=== PATIENT | male | born 1950 | race Caucasian/White ===

== ENCOUNTER 2019-08-21 08:40 | Observation (INO) ==
[2019-08-21] MEDS ORDERED: NS 1,000 ML IV ONE (09:11)
[2019-08-21] MEDS ORDERED: FLEET ENEMA PR ONE (09:15)
[2019-08-21 09:21] LABS: URINE SOURCE CLEAN CATCH
[2019-08-21 09:27] LABS: BILIRUBIN URINE NEGATIVE (NEGATIVE); BLOOD URINE NEGATIVE (NEGATIVE); COLOR YELLOW; GLUCOSE URINE NEGATIVE (NEGATIVE); KETONE URINE TRACE mg/dL (NEGATIVE); LEUKOCYTES URINE SMALL (NEGATIVE); NITRITE URINE NEGATIVE (NEGATIVE); PROTEIN URINE TRACE mg/dL (NEGATIVE); SP GRAVITY URINE 1.024; TURBIDITY URINE CLEAR (CLEAR); UROBILINOGEN URINE NORMAL (NORMAL)
[2019-08-21 09:28] LABS: UR EPITHELIAL CELLS <10 /HPF (<10); URINE BACTERIA NEGATIVE /HPF; URINE RBC <10 /HPF (<10); URINE WBC <10 /HPF (<10)
[2019-08-21] MEDS ORDERED: ULTRAM PO ONE (09:39)
[2019-08-21 09:59] LABS: BASO# 0.05 X1000 (0.0-0.2); BASO% 0.6 % (0.0-0.8); EOS# 0.21 X1000 (0.0-0.7); EOS% 2.5 % (0.0-10.0); HEMATOCRIT 55.3 % (42.0-52.0); HEMOGLOBIN 18.6 g/dL (14.0-18.0); LYMPH# 1.84 X1000 (1.2-3.4); LYMPH% 22.1 % (20.5-51.1); MCH 28.6 PG (27-31); MCHC 33.6 g/dL (33-37); MCV 84.9 FL (81-99); MONO# 0.95 X1000 (0.11-0.59); MONO% 11.4 % (1.7-9.3); MPV 10.3 FL (7.4-10.4); NEUT# 5.26 X1000 (1.4-6.5); NEUT% 63.4 % (42.2-75.2); PLT 194 X1000 (130-400); RBC 6.51 XMIL (4.7-6.1); RDW 16.1 % (11.5-14.5); WBC 8.31 X1000 (4.8-10.8)
[2019-08-21 10:17] LABS: AGAP 10; ALB/GLOB RATIO 1.1; ALBUMIN 3.6 g/dL (3.5-5.0); ALKALINE PHOSPHATASE 64 U/L (32-122); BUN 12 mg/dL (8-22); CALCIUM 9.3 mg/dL (8.8-10.2); CHLORIDE 99 mmol/L (98-107); COSMO 275; CREATININE 1.1 mg/dL (0.7-1.2); ESTIMATED GFR > 60; GLUCOSE 116 mg/dL (70-104); GOT 35 U/L (10-34); GPT 39 U/L (10-44); POTASSIUM 3.7 mmol/L (3.5-5.1); SODIUM 137 mmol/L (136-145); TCO2 28 mmol/L (25-35); TOTAL BILIRUBIN 0.79 mg/dL (0.20-1.00); TOTAL PROTEIN 6.9 g/dL (6.3-8.3)
[2019-08-21] MEDS ORDERED: ROCEPHIN 1 GM in NS 50 ML IV ONE (11:21)
--- NOTE | 2019-08-21 11:47 | Diag Imaging Result Doc PS360 ---
EXAM: CT ABD/PELVIS W/PO AND IV CON INDICATION: abdo pain, constipation TECHNIQUE: This exam was performed using automated exposure control, adjustment of mA or kV according to patient size, and/or use of iterative reconstruction technique. COMPARISON: 08/20/2019 FINDINGS: There is minimal subsegmental atelectasis at the lung bases. The liver, gallbladder, spleen, pancreas, adrenal glands, kidneys, and urinary bladder are essentially unremarkable. The appendix is not identified. There is no secondary sign of appendicitis. There is mild to moderate uncomplicated sigmoid colonic diverticulosis. There is increased stool in the right colon which could be due to obstipation. There is no evidence of bowel wall thickening or bowel obstruction. The remainder of the GI tract is essentially unremarkable. No focal inflammatory changes, free abdominal gas, or free fluid is appreciated. There are stable bilateral inguinal hernias that contain only fat. There is no evidence of acute osseous abnormality. IMPRESSION: Somewhat increased stool in the right colon suggesting possible obstipation. Otherwise, stable CT with no evidence of acute pathology. Electronically signed by Brooks Hall 08/21/2019 11:44 AM
--- NOTE | 2019-08-21 12:39 | PROVIDER DOCUMENTATION ---
This chart was entered by Lorrie Cooper Scribe, acting as scribe for Devon Figueredo MD. HPI-Abdominal Pain/GI Problem - General Chief Complaint: Constipation Stated Complaint: RETURN/RECHECK Time Seen by Provider: 08/21/19 08:56 Source: patient Allergies/Adverse Reactions: Patient Allergies Allergy/AdvReac Type Severity Reaction Status Date / Time No Known Allergies Allergy Verified 08/20/19 10:47 Home Medications: Home Medication List Medication Instructions Recorded Confirmed Last Taken Type Alprazolam 1 tab PO PRN PRN 08/20/19 08/20/19 Unknown History Ciprofloxacin HCl [Cipro] 1 tab PO BID 08/20/19 08/20/19 08/20/19 History Dicyclomine [Bentyl] 20 mg PO BID #20 cap 08/20/19 Unknown Rx Lansoprazole 1 cap PO DAILY 08/20/19 08/20/19 08/20/19 History Losartan/Hydrochlorothiazide 1 tab PO DAILY 08/20/19 08/20/19 08/20/19 History [Hyzaar 100-25 Tablet] Montelukast Sodium 1 tab PO DAILY 08/20/19 08/20/19 08/20/19 History Polyethylene Glycol 3350 [Miralax] 1 dose PO PRN PRN 08/20/19 08/20/19 08/19/19 History Tramadol HCl 1 tab PO QHS 08/20/19 08/20/19 08/19/19 History Tramadol HCl 2 tab PO QAM 08/20/19 08/20/19 08/20/19 History - History of Present Illness-ABD Nature of Presenting Problems: 68yom presents to ED cc LLQ pain and left flank pain, frequency and hesitancy for 2 weeks, along with constipation and no BM for 1 week. Pt reports he was seen in ED yesterday, dx with diverticulosis;constipation and given Relistor, told to follow up with PCP. He is on Ultram and [place] that was prescribed by PCP for abdominal pain. He has taken no constipation relief meds at home before coming into ED. He denies F/C/Cough/N/V/D/SOB. Abdominal Pain Onset Location: reports: LLQ Pain Radiation: reports: flank (left) Quality of Pain: reports: sharp Severity in ED: reports: mild Onset/Duration: reports: other (2 weeks) Timing: reports: still present, changing over time Activities at Onset: reports: light activity Exposure to sick contacts?: No Modifying Factors: improves with: nothing Associated Symptoms: reports: constipation, genitourinary problems Last BM: 1 week ago Similar Symptoms Previously?: Yes Recently seen or treated by another doctor?: Yes (seen in ED yesterday) Review of Systems - Adult - REVIEW OF SYSTEMS - ADULT Constitutional: reports: see HPI. denies: chills, fever, fatique Eyes: reports: no symptoms reported Ears, Nose, Mouth & Throat: reports: no symptoms reported Cardiovascular: reports: no symptoms reported Respiratory: reports: see HPI. denies: cough, shortness of breath Gastrointestinal: reports: see HPI, abdominal pain (LLQ). denies: diarrhea, nausea, vomiting Genitourinary: reports: see HPI, frequency, flank pain (left), hesitency Musculoskeletal: reports: no symptoms reported Integumentary: reports: no symptoms reported Neurological: reports: no symptoms reported Psychiatric: reports: no symptoms reported Endocrine: reports: no symptoms reported Hematologic/Lymphatic: reports: no symptoms reported Allergic/Immunologic: reports: no symptoms reported All Other Systems: Reviewed and Negative Past History - Adult - PAST MEDICAL HISTORY-ADULT Review of Records: reports: Old Records Reviewed, Nursing Assessment Review, Medications Reviewed, Social history reviewed & non-contributory. Major Childhood Illnesses: reports: denies history Cardiovascular: reports: denies history Respiratory: reports: denies history Gastrointestinal: reports: denies history Obstetrical/Gynecological: reports: denies history Genitourinary: reports: denies history Musculoskeletal: reports: denies history Neurological: reports: denies history Endocrine/Immune: reports: denies history Other Conditions: reports: denies history - IMMUNIZATION STATUS Childhood Immunizations: See Nurse Assessment Flu Vaccine: See Nurse Assessment - FAMILY HISTORY Family History: reviewed, not pertinent Physical Exam-General - PHYSICAL EXAM-ADULT Initial Vital Signs Reviewed: Yes - CONSTITUTIONAL General Appearance: appears well, alert. negative: anxious - EYES Eyes: PERRL/EOMI, pink conjunctivae. negative: photophobia - HEAD, EARS, NOSE, MOUTH & THROAT HENMT: normocephalic/atraumatic, moist mucous membranes. negative: angioedema - NECK Neck: non-tender, full range of motion, supple, normal inspection. negative: lymphadenopathy - RESPIRATORY Respiratory: chest non-tender, lungs clear, normal breath sounds. negative: rhonchi, wheezing - CARDIOVASCULAR Cardiovascular: normal peripheral pulses, regular rate, rhythm, no edema, no murmur. negative: bradycardia, tachycardia - GASTROINTESTINAL (ABDOMEN) Abdominal Exam: normal bowel sounds, soft, tenderness (LLQ). negative: distended, guarding - LYMPHATIC Lymphatic: no adenopathy. negative: enlargement - MUSCULOSKELETAL Back Exam: no vertebral tenderness, CVA tenderness (left) Extremity: normal range of motion, non-tender, normal gait, normal inspection, no pedal edema, no calf tenderness, normal capillary refill. negative: deformity, swelling - SKIN Integumentary: normal color, normal turgor, warm/dry. negative: diaphoresis, jaundice, rash - NEUROLOGIC Neurologic: lime trimmer II-XII nml as tested, grossly normal - PSYCHIATRIC Psych/Mental Status: normal mood/affect, oriented x 3. negative: anxious Progress - PLAN OF CARE/RESULTS Progress/Plan/Lab Results: Vital Signs - 8 hr 08/21/19 08:55 Temperature 98.3 F Pulse Rate 85 Respiratory Rate 18 Blood Pressure 142/97 O2 Sat by Pulse Oximetry 96 Laboratory Results - last 24 hr 08/21/19 08/21/19 08/21/19 08:58 09:34 09:34 WBC 8.31 RBC 6.51 H Hgb 18.6 H Hct 55.3 H MCV 84.9 MCH 28.6 MCHC 33.6 RDW Std Deviation 16.1 H Plt Count 194 MPV 10.3 Neut % (Auto) 63.4 Lymph % (Auto) 22.1 [place] % (Auto) 11.4 H Eos % (Auto) 2.5 Baso % (Auto) 0.6 Neut # (Auto) 5.26 Lymph # (Auto) 1.84 [place] # (Auto) 0.95 H Eos # (Auto) 0.21 Baso # (Auto) 0.05 Sodium 137 Potassium 3.7 Chloride 99 Carbon Dioxide 28 Anion Gap 10 BUN 12 Creatinine 1.1 Estimated GFR/1.73 m2 > 60 BUN/Creatinine Ratio 11 Glucose 116 H Calculated Osmolality 275 Calcium 9.3 Total Bilirubin 0.79 AST 35 H ALT 39 Alkaline Phosphatase 64 Total Protein 6.9 Albumin 3.6 Globulin 3.3 Albumin/Globulin Ratio 1.1 Urine Source CLEAN CATCH Urine Color YELLOW Urine Turbidity CLEAR Urine pH 7.0 Ur Specific [place] 1.024 Urine Protein TRACE A Ur Glucose (Stick) NEGATIVE Ur Ketones (Stick) TRACE A Urine Blood NEGATIVE Urine Nitrite NEGATIVE Urine Bilirubin NEGATIVE Urobilinogen Dipstick NORMAL Urine Leukocytes SMALL A Urine WBC (Auto) <10 Urine RBC (Auto) <10 U Epithel Cells (Auto) <10 Urine Bacteria (Auto) NEGATIVE Orders Category Date Time Status CT ABD/PELVIS W/PO AND IV CON [CT] Stat Exams 08/21/19 09:16 Ordered CBC WITH ELECTRONIC DIFF [HEME] Stat Lab 08/21/19 09:34 Completed COMPREHENSIVE METABOLIC PANEL [CHEM] Stat Lab 08/21/19 09:34 Completed URINALYSIS W/POSS RFLX CULT [URINALYSIS] Stat Lab 08/21/19 08:58 Completed URINE CULTURE [RM] Routine Lab 08/21/19 08:58 Received 0.9% Sodium Chloride Inj [Ns] 1,000 ml Med 08/21/19 09:11 Discontinued IV 999 mls/hr Na Phos,M-B/Na Phos,Di-Ba [Fleet Enema] Med 08/21/19 09:15 Discontinued 133 ml VT NOW ONE Tramadol [Ultram] Med 08/21/19 09:39 Discontinued 50 mg PO NOW ONE Result Diagrams: 08/21/19 09:34 08/21/19 09:34 - CT/MRI 1 CT Study: Abdomen Impression: See EMR Report (IMPRESSION: Somewhat increased stool in the right colon suggesting possible obstipation. Otherwise, stable CT with no evidence of acute pathology. Electronically signed by Brooks Hall 08/21/2019 11:44 AM) - CONSULTS/PCP/HOSPITALIST Notification #1 *Consult/PCP/Hospitalist*: Dr. Dorantes Time Discussed: 12:20 Consult Disposition: other (admit to hospitalist and he will see him upstairs. Plan is to have bowel prep cleanout.) #2 Consult: Mitali/INTELLIGENCE ANALYST Time Discussed: 12:31 Consult Disposition: Admit (accepted to Hospitalist) Departure - Departure Date of Disposition Decision: 08/21/19 Time of Disposition Decision: 12:14 DIAGNOSIS: Constipation, Abdominal pain of unknown etiology Disposition: ADMITTED INPATIENT 09 Certified Medical Emergency: Emergent Condition: Fair Additional Instructions: ED Follow Up Instructions: You have been treated by a care provider in the Emergency Department. These instructions are being provided to you so you can have an understanding of how to care for yourself upon discharge. Upon discharge from the Emergency Department, you are responsible for making arrangements for follow-up care by a physician of your choice. Take all prescribed medications as directed. Return to the Emergency Department immediately for any new or worsening symptoms. You may call the Physician Referral phone number at [phone] to obtain a list of Physicians who are taking new patients. Referrals and Follow-Ups: Juan Miguel Blum MD [Primary Care Provider] - - Critical Care Note This patient required my direct & personal management of CC.: No Attestation - Physician/ DARIUSZ Attestation Patient care was provided by Advanced Practice Provider:: No The physician spent face to face time with patient:: Yes Advanced Practice Provider documentation review:: Supervising physician onsite and consulted in the evaluation and care of this patient. The physician did have a face to face encounter with the patient. This chart was documented by the indicated scribe, (Lorrie Cooper Scribe) and accurately reflects the services I performed and decisions made by me, Devon Figueredo MD, as attested by the provider's signature.
[2019-08-21] MEDS ORDERED: ZOFRAN IV ONE (12:42)
[2019-08-21] MEDS ORDERED: DILAUDID IV ONE (12:42)
[2019-08-21] MEDS ORDERED: TYLENOL PO PRN (13:57)
[2019-08-21] MEDS ORDERED: ZOFRAN IV PRN (13:57)
[2019-08-21] MEDS ORDERED: NS 1,000 ML IV SCH (14:00)
--- NOTE | 2019-08-21 15:03 | HISTORY AND PHYSICAL ---
PRIMARY CARE PROVIDER: Dr. Blum. PRIMARY CONFIGURATOR: Dr. Cox. CHIEF COMPLAINT: Abdominal pain and constipation. HISTORY OF PRESENT ILLNESS: Mr. Raúl Naik is a 68-year-old male with a medical history of diverticulosis, diverticulitis, anxiety, hypertension, GERD and chronic pain syndrome of the lower back. States that July, he was treated for influenza and had a chronic cough with that. 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 At that time, they treated him with Levaquin; that cleared up, but at least for the last 2 to 2 and a half weeks, he has been having abdominal pain. It has been continuous, primarily in the left upper quadrant. He has no cough, no fever, just that pain, and no bowel movement in over a week. He came in yesterday with these complaints as well. He has attempted Mag citrate, MiraLAX, and then like over a week ago it only produced watery stool, but no real bowel movement. His primary tried to put him on Flagyl and Cipro in order to possibly treat diverticulitis. However, the patient did not take this medication. He came here. He had an abdominal CT which shows right colon possible obstipation. ER nurse practitioner got in touch with Dr. Dorantes, and the decision was made to admit him and get him cleaned out. PAST MEDICAL HISTORY: 1. Hypertension. 2. Anxiety. 3. GERD. 4. Chronic pain syndrome of the lower back. 5. Diverticulosis. 6. Diverticulitis. SURGICAL HISTORY: 1. Hemorrhoidectomy. 2. Epidurals. 3. EGD and colonoscopy around a year ago. 4. Polypectomy. SOCIAL HISTORY: Quit smoking in 2009, but prior to that he was a 1 pack per day smoker and started smoking on and off since the age of 13. He used to chew tobacco, but quit that in 2018. He only takes maybe 6 beers max per year. There is no illicit drug use. He is with adult children. 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 FAMILY HISTORY: Mother had intestinal rupture in her 40s that required colostomy bag. Father at the age of 56 from a brain aneurysm. ALLERGIES: No known drug allergies. HOME MEDICATIONS: Are not reconciled yet. REVIEW OF SYSTEMS: Fourteen point review of systems are complete, and all were negative except for those mentioned above in HPI. PHYSICAL EXAMINATION: VITAL SIGNS: Temperature 98.3 degrees, heart rate 72, respiratory rate 18, blood pressure 178/96, O2 saturation 99% on room air, 5 feet 11 inches tall, 280 pounds with a BMI of 39.1. GENERAL: Mr. Raúl Naik is a 68-year-old male. He is in no acute distress. He is able to answer questions appropriately. HEENT: Atraumatic, normocephalic. Pupils equal, round, reactive to light. Extraocular movements intact. Mucous membranes are dry. NECK: Trachea midline. CARDIOVASCULAR: S1, S2. Regular rate and rhythm. No rubs, gallops, or murmurs. No lower extremity edema. +2 dorsalis and radial pulses. Negative JVD or carotid bruits. PULMONARY: Clear to auscultation. Bilateral breath sounds. No accessory muscle use or work of breathing noted. GI: Soft, tender in the left upper quadrant and right mid to upper quadrant. Positive bowel sounds x4. EXTREMITIES: Moves all extremities equally. Full range of motion. NEUROLOGIC: A and O x3. Follows commands. Sensory is intact. SKIN: Warm, dry, intact. LABORATORY DATA: White blood cells 8000, hemoglobin 18, hematocrit 55, platelet count 194. Sodium 137, potassium 3.7. BUN 12, creatinine is 1.1, glucose 116, calcium 9.3. Bilirubin 0.79, AST 35, ALT 39, albumin 3.6. Urinalysis: Trace protein, trace ketones, small leukocytes, otherwise negative. Urine culture yesterday was negative. Urine culture today pending. IMAGING: He had an abdominal pelvic CT yesterday on the that showed uncomplicated diverticulosis. He had a repeat abdominal CT today that shows somewhat increasing stool in the right colon suggesting possible obstipation, but no acute findings. ASSESSMENT AND PLAN: 1. Abdominal pain with obstipation. No bowel movement in 1 week. He has tried Mag citrate, MiraLAX. He got Relistor yesterday and he is still not having success with a bowel movement. He is actually having tenderness in the left upper quadrant, despite the finding being in the right on the CAT scan, so we will add Giselle Colace twice a day, MiraLAX twice a day, lactulose twice a day, and we will attempt two soapsuds enemas. Also Dr. Dorantes is aware of the patient's case. It was discussed between he and the ER staff, so we will consult him, and given the tenderness in the left upper quadrant, we will just add abdominal ultrasound in the morning. We will make him on nothing by mouth after midnight. 2. Hypertension. Once his home medications are reconciled, we will resume that. 3. Gastroesophageal reflux disease. 4. Anxiety. Again, will continue home medications. 5. History of diverticulosis and diverticulitis. However, white count is normal. There is no diverticulitis on the CAT scan, so will not do any antibiotics. 6. Deep venous thrombosis prophylaxis. Sequential compression devices. Dictated by YASH Segovia for Jack Anton MD cc: YASH Segovia MD I agree with most components of history, physical, assessment and plan. A separate addendum has been dictated. ORESTES
--- NOTE | 2019-08-21 15:14 | GENERAL SURGERY CONSULTATION ---
DATE: 08/21/2019 REQUESTING PHYSICIAN: Emergency Department. REASON FOR CONSULTATION: Abdominal pain. HISTORY OF PRESENT ILLNESS: A 68-year-old gentleman comes in complaining of left upper and left lower quadrant abdominal pain with issues with urination and constipation for a week. He was seen in the emergency department yesterday, had a CT scan that did not show any acute pathology, and the same thing was repeated today which only showed some constipation. He has had a previous colonoscopy a year ago that showed no pathology, but he is having persistent pain. He is being admitted by the hospitalist for evaluation. He is currently complaining of pain in the left side. PAST MEDICAL HISTORY: Hypertension, lower back pain, history of diverticulitis. PAST SURGICAL HISTORY: Includes hemorrhoid surgery. SOCIAL: Reports occasional alcohol, but nonsmoker. ALLERGIES: None. HOME MEDICATIONS: Reviewed. FAMILY HISTORY: Reviewed with the patient and noncontributory. REVIEW OF SYSTEMS: A full 14 systems reviewed and negative, except as specified in HPI. PHYSICAL EXAMINATION: Vital Signs: Patient is currently afebrile. His vital signs are stable. General exam: No acute distress. HEENT: Normocephalic, atraumatic. Pupils equal, round, reactive to light. Mucous membranes moist. Oropharynx benign. Neck: Supple. Trachea midline. Cardiovascular: Regular rate and rhythm. Lungs: Grossly clear. Abdomen: Soft. Some tenderness on the left side, but no peritoneal signs. Extremities: Moves all extremities. Neurologic: Grossly intact. Skin: No signs of jaundice. Vascular: All extremities perfused. LABORATORY REVIEWED: White blood cell count is normal. Hematocrit is a little bit high. No left shift. Remainder of labs reviewed. IMAGING STUDIES: CT scan independently reviewed and radiology report reviewed. ASSESSMENT AND PLAN: A 68-year-old with abdominal pain. 1. Abdominal pain. At this time, the only thing noticeable on CT scan is that he is somewhat constipated. I agree with admitting him and trying to clean him out and see how he does. He has had a relatively recent colonoscopy, so I do not think another one is merited. At this time, he does not have a surgical abdomen, so I do not foresee any acute need for any surgical intervention, but if any other etiology is noted, may consider it at this point. We will follow while he is in the hospital. I appreciate the consult. cc: Braulio Dornates MD
[2019-08-21] MEDS: PERICOLACE PO SCH ×2 (15:31→22:41)
[2019-08-21] MEDS: LACTULOSE PO SCH ×2 (15:31→22:45)
[2019-08-21] MEDS: MIRALAX PO SCH ×2 (15:31→22:42)
[2019-08-21] MEDS ORDERED: LEVSIN-SL SL PRN (18:26)
--- NOTE | 2019-08-21 19:02 | HISTORY AND PHYSICAL ---
ADDENDUM TO HISTORY AND PHYSICAL BY NURSE PRACTITIONER: I agree with most components of history, physical, assessment, and plan. In brief, Mr. Naik is a 68-year-old man with past medical history of diverticulosis, diverticulitis, anxiety, hypertension, GERD, chronic pain, and chronic back pain who comes in with chief complaint of left lower quadrant abdominal pain which has been ongoing since about the last 4 weeks. Apparently, the patient had seen a GI specialist, Dr. Cox, in his office several weeks ago where abdomen/pelvis CT scan was performed though, according to report given to me by the patient, it did not detect any acute abnormality. He was given some stool softeners which did not help and his symptoms started getting worse. He was also seen by a regular physician who had given him antibiotics which did not help, so he eventually decided to come to the emergency room. His initial presentation was on August 19 and he was discharged home, but he came back on August 20 with similar symptoms. SUBJECTIVE: He is complaining of left quadrant abdominal pain. He is lying down on the right side of his body right now. PHYSICAL EXAMINATION: VITAL SIGNS: He is afebrile with temperature 97.3 degrees, pulse 62, respiratory rate 19, blood pressure 124/69, saturating 99% on room air. GENERAL: Morbidly obese. Not in acute distress. HEENT: Oral cavity is moist. PULMONARY: Air entry bilaterally equal. No wheeze, rhonchi, crackles. CARDIAC: S1, S2 normal. No murmur or gallop. ABDOMEN: Soft, nontender except left lower quadrant. There is no rebound or rigidity though. He has active bowel sounds. He just received enema. EXTREMITIES: No lower extremity edema. NEUROLOGIC: He is alert and oriented x3. LABORATORIES: Suggestive of no leukocytosis. WBC 8.3,, platelet 194,000. BUN is 12, creatinine 1.1. His lactate is 0.8. Microbiology: Urine culture was collected since his urine analysis had small leukocytes. However, he does not have any complaints. IMAGING: Abdomen and pelvis CT had detected increased stool in the right colon suggestive of possible obstipation. Otherwise, they were stable without any evidence of acute pathology. General surgical team was evaluated. ASSESSMENT AND PLAN: 1. Left lower quadrant abdominal pain in the setting of obstipation. The patient unfortunately did not improve on outpatient management. He was given oral antibiotics and stool softener regimen, but has not had any significant stool output and his pain got worse, so we decided to admit him. I do not see any signs of acute diverticulitis on the CAT scan. I will start him on lactulose, bisacodyl, and MiraLAX as well as senna. If this does not help him have a bowel movement, my plan is to start him on GoLYTELY on 08/22/2019 and the patient is agreeable to this plan. 2. Others. Continue home losartan for essential hypertension; alprazolam for anxiety; acetaminophen as needed for pain. I will also start him on Levsin and tramadol. DISPOSITION: Monitor him inside the hospital. Appreciate surgical team's recommendation. Plan of care discussed with Mr. Naik. He was allowed to ask questions. All of his questions have been satisfactorily answered. cc: Jack Anton MD MTDD
[2019-08-21] MEDS ORDERED: TORADOL IV ONE (20:37)
[2019-08-21] MEDS ORDERED: HYZAAR 50/12.5 MG PO SCH (21:00)
[2019-08-21] MEDS ORDERED: XANAX PO SCH (21:00)
[2019-08-21] MEDS ORDERED: DULCOLAX PR SCH (21:00)
--- NOTE | 2019-08-22 05:55 | GENERAL SURGERY PROGRESS NOTE ---
DATE: 08/22/2019 SUBJECTIVE: The patient has had 4 bowel movements, doing okay but still having a little bit of left lower quadrant pain. OBJECTIVE: Vital Signs: The patient is currently afebrile. His vital signs are stable. General: No acute distress. HEENT: Normocephalic, atraumatic. Pupils equal, round, and reactive to light. Mucous membranes moist. Oropharynx benign. Neck: Supple. Trachea midline. Cardiovascular: Regular rate and rhythm. Lungs: Grossly clear. Abdomen: Soft. Some discomfort in the left lower quadrant but no peritoneal signs. Extremities: Moves all extremities. Neurologic: Grossly intact. Skin: No signs of jaundice. Vascular: All extremities perfused. LABORATORY: None this morning. IMAGING: Abdominal film I have ordered for this morning. ASSESSMENT AND PLAN: A 68-year-old gentleman with constipation and abdominal pain. Constipation with abdominal pain: At this time, I do not see any signs of diverticulitis. He was made NPO and I am unsure why so I will put him on a clear liquid diet. We will get a flat and upright abdominal film on him today since he has had multiple bowel movements, just to see if the constipation has improved. We will continue to follow him. I suspect he will not require any surgical intervention. cc: Brauloi Dorantes MD
[2019-08-22 06:36] LABS: BASO# 0.04 X1000 (0.0-0.2); BASO% 0.5 % (0.0-0.8); EOS% 2.3 % (0.0-10.0); HEMOGLOBIN 17.5 g/dL (14.0-18.0); IMM GRAN# 0.02 X1000 (0.0-0.04); IMM GRAN% 0.2 % (0.0-0.5); LYMPH# 1.75 X1000 (1.2-3.4); MCHC 32.4 g/dL (33-37); MCV 86.3 FL (81-99); MONO# 1.05 X1000 (0.11-0.59); MPV 10.3 FL (7.4-10.4); PLT 218 X1000 (130-400); RBC 6.26 XMIL (4.7-6.1); RDW 14.7 % (11.5-14.5); WBC 8.76 X1000 (4.8-10.8)
[2019-08-22 06:50] LABS: AGAP 12; ALB/GLOB RATIO 1.1; ALBUMIN 3.8 g/dL (3.5-5.0); ALKALINE PHOSPHATASE 64 U/L (32-122); BUN 10 mg/dL (8-22); CHLORIDE 96 mmol/L (98-107); COSMO 273; CREATININE 1.1 mg/dL (0.7-1.2); ESTIMATED GFR > 60; GLUCOSE 92 mg/dL (70-104); GOT 37 U/L (10-34); GPT 39 U/L (10-44); POTASSIUM 3.8 mmol/L (3.5-5.1); SODIUM 137 mmol/L (136-145); TCO2 29 mmol/L (25-35); TOTAL BILIRUBIN 1.02 mg/dL (0.20-1.00); TOTAL PROTEIN 7.2 g/dL (6.3-8.3)
[2019-08-22] MEDS ORDERED: GOLYTELY PO ONE (07:00)
--- NOTE | 2019-08-22 07:04 | Diag Imaging Result Doc PS360 ---
EXAM: ABDOMEN FLAT/UPRIGHT 08/22/2019 HISTORY: follow up constipation TECHNIQUE: Flat and upright abdomen COMMENT: There are air-fluid levels in the colon. The small bowel is not distended. The stomach is not distended. There is no evidence of organomegaly or mass. IMPRESSION: Nonspecific abdomen. Electronically signed by Ady Neff 08/22/2019 7:01 AM
[2019-08-22] MEDS ORDERED: SINGULAIR PO SCH (09:00)
[2019-08-22] MEDS: MIRALAX PO SCH (11:30)
[2019-08-22] MEDS: PERICOLACE PO SCH (11:30)
--- NOTE | 2019-08-22 11:37 | PROGRESS NOTE ---
DATE: 08/22/2019 SUBJECTIVE: The patient seems to be getting better. He has been having multiple bowel movements and actually I will decrease the dose of the lactulose and I will stop the suppositories. Today he had 5 bowel movements. His abdomen seems to be better. Surgery Department on board. He has been placed on a liquid diet. I will wait for the final recommendations of the Surgery Department. OBJECTIVE: Vital Signs: Temperature 98.2 degrees, pulse 83, respiratory rate 18, blood pressure 154/101, oxygen saturation 93 on room air. HEENT: Head normocephalic, no trauma. PERRLA. Neck: Supple. No JVD. No masses. Central trachea. Chest: Clear to auscultation. No wheezing. No rales. Abdomen: Soft. It is slightly distended. Positive bowel sounds. There is no rebound or rigidity. He has some discomfort on the sides, left lower quadrant. Extremities: No edema, no clubbing, no cyanosis. Neurological examination: The patient is awake, alert. He is oriented x3. No focal deficits. LABORATORY: WBC 8.7, hemoglobin 17.5, hematocrit 54, platelet 218. Sodium 137, potassium 3.8, chloride 96, bicarbonate 29. BUN 10, creatinine 1.1, glucose 92, calcium 9, magnesium 2. AST 37, ALT 39, alkaline phosphatase 64. ASSESSMENT AND PLAN: 1. Abdominal pain, mostly left and right lower quadrants, in the setting of severe constipation. He seems to be doing much better. He had multiple bowel movements between yesterday and today. Today, at least 5; some of them liquid and some of them solid. I will continue with his home medications. I will continue with same management. I will stop the suppositories and I will decrease the dose of the lactulose. Surgery Department on board. 2. Anxiety. Continue home medications. 3. Hypertension. Continue with hydrochlorothiazide and losartan. 4. Abdominal x-ray is nonspecific and showed air/fluid level, will monitor. He is on a diet today. cc: Juanjo Juarez MD
[2019-08-22 12:53] VITALS: BP 134/77
--- NOTE | 2019-08-22 15:18 | DISCHARGE SUMMARY ---
ADMISSION DATE: 08/21/2019 DISCHARGE DATE: 08/22/2019 DISCHARGE DIAGNOSES: 1. Abdominal pain, in a patient with constipation. 2. Anxiety disorder. 3. Hypertension. PROCEDURES PERFORMED: Abdomen and pelvis CT scan dated 08/21/2019: Impression--somewhat increased stool in the right colon suggesting possible obstipation, otherwise stable CT with no evidence of acute pathology. Abdomen x-ray dated 08/22/2019: Impression--nonspecific abdomen. There are air-fluid levels in the colon, the small bowel is not distended. The stomach is nondistended. There is no evidence of organomegaly or mass. CONSULTATIONS: Surgery Department: Braulio Dorantes MD. HOSPITAL COURSE: 68-year-old male with a past medical history of diverticulosis/diverticulitis, anxiety, hypertension, GERD, chronic pain syndrome of the lower back, who was admitted on 08/21/2019. Apparently, in the first week of July he was treated for influenza and had chronic cough with that. 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 At that time he was treated with Levaquin that cleared up but at least for the last 2 or 2-1/2 weeks he has been having abdominal pain. His pain continued primarily in the left upper quadrant. He has no cough, fever, just pain and no bowel movement in over a week. He came in the day before admission with those complaints as well. He was treated with magnesium citrate and MiraLAX, and then like over a week ago only produced watery stools, but no real bowel movement. His primary tried to put him on ciprofloxacin and Flagyl in order to treat a possibility of diverticulitis. However, the patient did not take this medication. So, upon admission on 08/21/[address] scan done that showed right colon with possible obstipation. The ER nurse practitioner got in touch with Dr. Dorantes and the decision to admit this patient was made. He was placed on multiple stool softeners including lactulose, Giselle-Colace, MiraLAX and Dulcolax suppositories. He started having bowel movements yesterday. As per the patient, his belly pain and back pain was really hard to the point that he was not able to move, but after having multiple bowel movements, some of them liquids and some of then hard solid, his pain is much better to the point that today he wants to go home. He never had a leukocyte count elevated. His white blood cell count yesterday was 8.3 and today is 8.7. No fever, and vital signs actually are stable except for slightly elevated blood pressure, he does seems to be anxious and, as per the patient, this is normal for him. I will send this patient home today. I will continue with stool softener. I told him to eat healthy food and to go more to the liquid side and not to the really hard side, and he seems to understand. He was evaluated by Surgery Department who advanced the diet today and then I readvanced the diet at lunch, and he tolerated that well. Again, he is having multiple bowel movements. I do not think he is still constipated. I told the patient that he can go home today and come back if he started having fever or chills, bloody stools or more abdominal pain. PHYSICAL EXAMINATION: Vital Signs: Temperature 97.8 degrees, pulse 108, respiratory rate 20, blood pressure 134/77, oxygen saturation 96 on room air. HEENT: Head normocephalic, no trauma. PERRLA. Neck: Supple. No JVD. No masses. Central trachea. Chest: Clear to auscultation. No wheezing. No rales. Abdomen: Soft, is protuberant. No rebound. No rigidity. Positive bowel sounds. Some discomfort at the level of the left lower quadrant. Extremities: No edema, no clubbing, no cyanosis. Neurological: The patient is awake, alert, he is oriented x3. He seems to be a little bit anxious. LABORATORY: WBC 8.7, hemoglobin 17.5, hematocrit 54, platelets 218,000. Sodium 137, potassium 3.8, chloride 96, bicarbonate 28, BUN 10, creatinine 1.1, glucose 92, calcium 9, magnesium 2. AST 37, ALT 39, alkaline phosphatase 64, albumin 3.8. DISCHARGE MEDICATIONS: Basically, he will continue with his home medication, but I will add some stool softener; acetaminophen 650 mg p.o. every 6 hours as needed; alprazolam 1 tablet p.o. at bedtime; losartan-hydrochlorothiazide 100/25 mg tablet p.o. at bedtime; montelukast 1 tablet p.o. daily; MiraLAX 17 gm p.o. b.i.d.; Giselle-Colace 2 tablets p.o. q.a.m.; and Tramadol 100 mg p.o. q.a.m. cc: Juanjo Juarez MD
[2019-08-23] MEDS ORDERED: LACTULOSE PO SCH (09:00)
== END 2019-08-22 14:24 | disposition home or self-care (01) ==
LOC: ED 08:40 → SUATTDRO 14:44 → 4N 14:44 → INTOOBSV 14:44
PROVIDERS: ATTEND Internal Medicine